=== PATIENT | female | born 1965 | race Caucasian/White ===

== ENCOUNTER → 2019-04-13 18:43 | Outpatient (BNVA) | payer OTHER, SELFPAY | PROVIDERS: Family Provider Family Medicine; PCP Family Medicine; Visit Provider Family Medicine | DX: R05 Cough (principal); J02.9 Acute pharyngitis, unspecified | CPT/HCPCS: 87081; 87804; 87880 ==

== ENCOUNTER 2019-04-17 15:27 | Outpatient (CLI) | payer OTHER, SELFPAY ==
--- NOTE | 2019-04-27 09:30 | CT_ITS ---
WS: [id number] CT PARANASAL SINUSES HISTORY: sinusitis TECHNIQUE: Contiguous 2.5 mm axial images obtained through the sinuses. Images are reconstructed in s agittal and coronal planes. All CT scans at [facility] use at least one of these dose opt imization techniques: automated exposure control; mA and/or kV adjustment per patient size (includes targeted exams where dose is matched to clinical indication); or iterative reconstruction. DLP: 535.03 mGy.cm COMPARISON: None available. Frontal sinuses: No pneumatized frontal sinuses. Sphenoid sinus: Mucoperiosteal thickening bilaterally in the sphenoid sinuses. There is a pneumatized LEFT sphenoid sinus. Mucoperiosteal thickening in the LEFT sphenoid sinus measures up to 5 mm. Ethmoid sinuses: No significant disease. Maxillary sinus: Normal. Ostiomeatal unit: Patent with no obstruction. Very slight deviation of the nasal septum to the LEFT. There is a very tiny spur along the inferior n panchito septum extending to the LEFT by 3 mm. Soft tissues of the orbits and globes are normal.
== END 2019-04-17 15:28 | disposition home or self-care (01) ==
LOC: RADWPI 04-18 09:56
PROVIDERS: Family Provider Family Medicine; PCP Family Medicine; Visit Provider Otolaryngology
DX: J32.9 Chronic sinusitis, unspecified (principal); J34.2 Deviated nasal septum; J34.3 Hypertrophy of nasal turbinates; E89.0 Postprocedural hypothyroidism; R49.0 Dysphonia
CPT/HCPCS: 99203; 99214

== ENCOUNTER 2019-04-27 08:58 | Outpatient (CLI) | payer OTHER, SELFPAY ==
--- NOTE | 2019-04-27 09:23 | CT_ITS ---
WS: [id number] CT NECK WITH CONTRAST HISTORY: HYPOTHYROIDISM TECHNIQUE: Contiguous 5 mm axial images are performed through the neck with intravenous contrast. Sag ittal and coronal reformats are also submitted. All CT scans at [facility] use at least o ne of these dose optimization techniques: automated exposure control; mA and/or kV adjustment per pat ient size (includes targeted exams where dose is matched to clinical indication); or iterative recons truction. CONTRAST: CONTRAST: Omnipaque 300; 95 mL IV. DLP: 545.08 mGy.cm COMPARISON: None available. There is some very mild asymmetry involving either vallecula. The RIGHT vallecula is smaller caliber and slightly deformed with increased soft tissue. Very slight deviation of the glossoepiglottic fold to the LEFT. No discrete mass is identified. Epiglottis remains midline. Otherwise the larynx is nega tive. Torus tubarius and fossa of Rosenmuller and parapharyngeal fat are normal. There are small bilateral cervical chain lymph nodes. The largest lymph nodes at level II on the RIGH T measures 8 mm in diameter. Thyroid gland is absent. By history surgical removal. Parotid glands are fatty replaced. Submandibula r glands are negative. Mild cervical spondylosis. Visualized portions of the skull base demonstrate no abnormalities. Orbits and globes are within norm al limits. No soft tissue masses. Imaging through the upper lung luo demonstrates dependent changes. Pulmonary artery size appears s lightly enlarged as compared to the aorta. CT/CT neck w con* [id number] IMPRESSION: 1. Very mild asymmetry of the RIGHT vallecula as compared to the LEFT. There i s volume loss and partial collapse of the RIGHT vallecula. No discrete mass mckayla ntified. Consider direct visualization. 2. No adenopathy. 3. Prior thyroidectomy.
[2019-04-27] MEDS: iohexol 300 mg/mL 100 mL Btl IV (10:17)
--- NOTE | 2019-04-27 16:35 | CT_ITS ---
WS: [id number] CT PARANASAL SINUSES HISTORY: sinusitis TECHNIQUE: Contiguous 2.5 mm axial images obtained through the sinuses. Images are reconstructed in s agittal and coronal planes. All CT scans at [facility] use at least one of these dose opt imization techniques: automated exposure control; mA and/or kV adjustment per patient size (includes targeted exams where dose is matched to clinical indication); or iterative reconstruction. DLP: 535.03 mGy.cm COMPARISON: None available. Frontal sinuses: No pneumatized frontal sinuses. Sphenoid sinus: Mucoperiosteal thickening bilaterally in the sphenoid sinuses. There is a pneumatized LEFT sphenoid sinus. Mucoperiosteal thickening in the LEFT sphenoid sinus measures up to 5 mm. Ethmoid sinuses: No significant disease. Maxillary sinus: Normal. Ostiomeatal unit: Patent with no obstruction. Very slight deviation of the nasal septum to the LEFT. There is a very tiny spur along the inferior n panchito septum extending to the LEFT by 3 mm. Soft tissues of the orbits and globes are normal. CT/CT sinus wo con* [id number] IMPRESSION: 1. Mild sphenoid sinusitis. 2. Ostiomeatal units are patent. 3. Minimal LEFT deviation of the nasal septum.
== END 2019-04-27 08:59 | disposition home or self-care (01) ==
LOC: RAD 09:15
PROVIDERS: Family Provider Family Medicine; PCP Family Medicine; Visit Provider Otolaryngology
DX: J32.9 Chronic sinusitis, unspecified (principal); E03.9 Hypothyroidism, unspecified
CPT/HCPCS: 70486; 70491

== ENCOUNTER → 2019-05-03 10:31 | Outpatient (BNVA) | payer OTHER, SELFPAY | PROVIDERS: Family Provider Family Medicine; PCP Family Medicine; Visit Provider Otolaryngology | DX: J32.9 Chronic sinusitis, unspecified (principal); J34.2 Deviated nasal septum; J34.3 Hypertrophy of nasal turbinates; E89.0 Postprocedural hypothyroidism; R49.0 Dysphonia | CPT/HCPCS: 96372; 99214; J3301 ==

== ENCOUNTER → 2019-05-12 10:57 | Outpatient (BNVA) | payer OTHER, SELFPAY | PROVIDERS: Family Provider Family Medicine; PCP Family Medicine; Visit Provider Otolaryngology | DX: J34.2 Deviated nasal septum (principal); J34.3 Hypertrophy of nasal turbinates; E89.0 Postprocedural hypothyroidism; R49.0 Dysphonia; R05 Cough | CPT/HCPCS: 31575; 99214 ==

== ENCOUNTER → 2019-11-30 16:46 | Outpatient (BNVA) | payer OTHER, SELFPAY | PROVIDERS: Family Provider Family Medicine; PCP Family Medicine; Visit Provider Internal Medicine Rheumatology | DX: M06.9 Rheumatoid arthritis, unspecified (principal); Z11.59 Encounter for screening for other viral diseases | CPT/HCPCS: 80076; 85025 ==

== ENCOUNTER → 2020-01-16 13:46 | Outpatient (BNVA) | payer OTHER, SELFPAY | PROVIDERS: Family Provider Family Medicine; PCP Family Medicine; Visit Provider Nurse Practitioner Family | DX: Z11.59 Encounter for screening for other viral diseases (principal); J06.9 Acute upper respiratory infection, unspecified | CPT/HCPCS: 87635 ==

== ENCOUNTER → 2020-02-01 17:21 | Outpatient (BNVA) | payer OTHER, SELFPAY | PROVIDERS: Family Provider Family Medicine; PCP Family Medicine; Visit Provider Family Medicine Adult Medicine | DX: M54.9 Dorsalgia, unspecified (principal); M79.10 Myalgia, unspecified site; Z79.899 Other long term (current) drug therapy | CPT/HCPCS: 81000 ==

== ENCOUNTER 2020-03-04 18:12 | Emergency (ER) | payer OTHER, SELFPAY ==
--- NOTE | 2020-03-04 18:23 | XRR_ITS ---
PROCEDURE INFORMATION: Exam: XR Left Wrist Exam date and time: 03/04/2020 6:44 PM Age: 54 years old Clinical indication: Injury or trauma; Fall; Blunt trauma (contusions or hematomas); Injury date: 03/04/2020; Injury details: Attempted cartwheel - heard crack from left wrist; Prior surgery; Surgery type: Two carpals removed; Patient HX: Left wrist injury/pain TECHNIQUE: Imaging protocol: XR Left wrist. Views: 3 or more views. COMPARISON: No relevant prior studies available. FINDINGS: Bones/joints: The carpal bones appear normal. Only 1 row is present. There is narrowing of the radiocarpal space. The capitate and hamate are present. The remainder of the carpal bones are not optimally visualized. These changes likely are chronic Soft tissues: Unremarkable XR/XR wrist LT min 3V* [id number] IMPRESSION: 1. Chronic bone changes in the wrist as described 2. Negative for acute bony abnormality.
--- NOTE | 2020-03-04 18:37 | ED_ITS ---
HPI - Extremity Injury (Upper) General: Chief Complaint: Extremity Injury, Upper Stated Complaint: L WRIST INJURY Time Seen by Provider: 03/04/20 18:37 Source: patient Mode of arrival: ambulatory Limitations: no limitations History of Present Illness: HPI narrative: 54-year-old female patient presents to the emergency department with left wrist injury. She reports attempted a cartwheel - felt a pop in her left wrist. Reports occurred at 5 pm today. Previous injury to the left wrist - reports removal of bones to the left hand. MD complaint: injury to: left and wrist Other Extremity Injury: Left: wrist Other injuries: none Handedness: right Place: other ([facility]) Severity scale (1-10): 4 Relieving factors: none Exacerbating factors: movement of extremity Context: injury Associated symptoms: Reports no associated symptoms; Denies neck pain or weakness in extremities Review of Systems General: Reports: 10 or more systems reviewed and unremarkable except in HPI and below Const: Denies: fever(s), chills or diaphoresis Eyes: Denies: blurry vision or eye redness ENMT: Denies: throat pain, dental pain or disequilibrium Card: Denies: chest pain, palpitations or irregular heart rhythm Resp: Denies: dyspnea, productive cough, non-productive cough or wheezing GI: Denies: abdominal pain, nausea or vomiting : Denies: difficulty voiding or dysuria Musc: Reports: extremity pain (left wrist pain); Denies: neck pain or back pain Skin/Breast: Denies: rash or pruritus Neuro: Denies: headache(s), weakness in extremities or behavioral changes Psych: Denies: anxiety or depression Sarbjit/Lymph: Denies: easy bruising PFSH ED PFSH: Medical History Carcinoma of thyroid gland Chronic cough Chronic low back pain with sciatica Chronic sinusitis Depression Deviated septum Dysphonia Hypothyroidism Iron deficiency anemia Muscle ache Nasal turbinate hypertrophy Rheumatoid arthritis Thyroid cancer, medullary carcinoma Social History Smoking and tobacco status: never smoked Second hand smoke exposure: Yes Alcohol intake: current Alcohol intake frequency: holidays/special occasions only Lives independently: Yes Current occupational status: employed Current occupation: [employer] Teacher Current occupational exposures/hazards: No History of recent travel: No Current gender identity: Female Physical Exam Const: COMMON NORMALS: no acute distress, patient oriented x3, healthy appearing and alert GENERAL APPEARANCE: cooperative, comfortable and well hydrated HENMT: COMMON NORMALS: normocephalic, Normal external nose present and moist oral mucous membranes HEAD & SCALP: normocephalic NOSE: Normal external nose present Eye: COMMON NORMALS: Equal, round and reactive pupils present and EOMs intact bilaterally GENERAL EYE: appearance normal, both eyes and all related structures PUPIL: Yes Equal, round and reactive pupils present Neck/C-Spine: COMMON NORMALS: full ROM and no lymphadenopathy GENERAL: Yes normal visual inspection and Yes trachea midline CERVICAL SPINE: Yes cervical ROM normal Lymph: LYMPHATIC: no lymphadenopathy noted Chest: COMMONS NORMALS: normal inspection of the chest Resp: COMMON NORMALS: normal respiratory effort and clear to auscultation bilaterally AUSCULTATION: clear to auscultation bilaterally Cardio: COMMON NORMALS: regular rhythm, S1 normal heart sound present and S2 normal heart sound present RHYTHM: regular rhythm HEART SOUNDS: S1 normal heart sound present and S2 normal heart sound present GI: COMMON NORMALS: Soft to palpation and non-tender INSPECTION: Yes normal to inspection PALPATION: Yes Soft to palpation : COMMON NORMALS: Yes no CVA tenderness BLADDER/KIDNEY EXAM: Yes no CVA tenderness Back/Pelvis: COMMON NORMALS: no CVA tenderness and thoracic and lumbar spine normal to inspection Extremity: COMMON NORMALS: normal to inspection and capillary refill normal GENERAL: Yes normal exam except as noted LEFT UPPER EXTREMITY: Yes wrist Left wrist: Yes inspection (swelling over distal ulna), Yes palpation (pain over distal ulna), Yes ROM (unable to pronate/supinate) and Yes neurovascular exam (distally intact) Neuro: COMMON NORMALS: patient oriented x3 and no focal motor deficits SENSORIUM/ORIENTATION: Yes alert Psych: COMMON NORMALS: mental status grossly normal, Normal thought process present and cooperative ACTIVITY/MOTOR BEHAVIOR: Yes appropriate eye contact THOUGHT PROCESS: Normal thought process present Skin: COMMON NORMALS: no rashes or lesions noted and turgor normal GENERAL SKIN EXAM: no rashes or lesions noted and turgor normal Course Vital Signs: Vital signs: Vital Signs Temperature 98.0 F 03/04/20 18:50 Pulse Rate 73 03/04/20 18:50 Respiratory Rate 14 03/04/20 18:50 Blood Pressure 122/84 03/04/20 18:50 Pulse Oximetry 97 03/04/20 18:50 MDM - Extremity Injury (Upper) Imaging Data^: Xray Ortho: Radiologist's impression: [address] [place] [address] XRay Report Signed Patient: Alana Powell #: [id number] : 1965Acct#:[id number] Age/Sex: 54 / FADM Date: 03/04/20 Loc: ERRoom/Bed: Attending Dr: Ordering Provider/Ordering MD: Ellen Caceres MD Date of Service: 03/04/20 Procedure(s): XR wrist LT min 3V* [id number] Accession Number(s): [id number] Report Number: [id number] PROCEDURE INFORMATION: Exam: XR Left Wrist Exam date and time: 03/04/2020 6:44 PM Age: 54 years old Clinical indication: Injury or trauma; Fall; Blunt trauma (contusions or hematomas); Injury date: 03/04/2020; Injury details: Attempted cartwheel - heard crack from left wrist; Prior surgery; Surgery type: Two carpals removed; Patient HX: Left wrist injury/pain TECHNIQUE: Imaging protocol: XR Left wrist. Views: 3 or more views. COMPARISON: No relevant prior studies available. FINDINGS: Bones/joints: The carpal bones appear normal. Only 1 row is present. There is narrowing of the radiocarpal space. The capitate and hamate are present. The remainder of the carpal bones are not optimally visualized. These changes likely are chronic Soft tissues: Unremarkable XR/XR wrist LT min 3V* [id number] IMPRESSION: 1. Chronic bone changes in the wrist as described 2. Negative for acute bony abnormality. Dictated By:Yosi Pedersen Signed By:Rajan Pedersen Date/Time:03/04/201918 DD/ 17 Discharge Plan Discharge Patient Disposition: Home Clinical Impression: Muscle strain of left wrist Qualifiers: Encounter type: initial encounter Qualified Code(s): S66.912A - Strain of unspecified muscle, fascia and tendon at wrist and hand level, left hand, initial encounter Condition: Stable Prescriptions: No Action methotrexate sodium 5 mg tablet 5 mg PO DAILY RF: 0 gabapentin 300 mg capsule 300 mg PO .qhs Qty: 90 RF: 3 ferrous sulfate [Iron (ferrous sulfate)] 325 mg (65 mg iron) tablet 325 mg PO TID Qty: 270 RF: 3 sertraline 50 mg tablet 50 mg PO QDAY Qty: 90 RF: 3 omeprazole 20 mg capsule,delayed release(DR/EC) 20 mg PO BID 90 Days Qty: 180 RF: 3 fluticasone propionate [Flonase Allergy Relief] 50 mcg/actuation spray,suspension 1 spray INTRANASAL Q12H 60 Days Qty: 36.4 RF: 2 azelastine 137 mcg (0.1 %) aerosol,spray 2 spray INTRANASAL BID 90 Days Qty: 30 RF: 3 azithromycin 250 mg tablet See Rx Instructions PO .COMPLEX Qty: 6 RF: 0 prednisone 20 mg tablet 20 mg PO DAILY 5 Days Qty: 5 RF: 0 ibuprofen 800 mg tablet 800 mg PO BID Qty: 60 RF: 0 furosemide [Lasix] 20 mg tablet 20 mg PO QDAY PRN (Reason: edema) 30 Days Qty: 30 RF: 1 levothyroxine 137 mcg capsule 137 mcg PO QDAY Qty: 90 RF: 1 Discharge Orders: Discharge ED (Routine); Ordered 03/04/20 Ordered By: iLn Hammer Patient Instructions: Wrist Injury (ED), Splint Care (ED) Activity Restrictions/Additional Instructions: Utilize Velcro wrist splint to help with pain Radiologist did not visualize fracture during your ED stay Follow-up with your primary care physician if pain continues in 5 to 7 days Wear wrist splint at night and during the day with activity to help with pain and swelling Take Tylenol/ibuprofen as needed for pain as directed on bottle Coding Level of Care Code ED Survey Engineer for Chg Fwd Exam Comprehensive
[2020-03-04 18:50] VITALS: BP 122/84; PULSE 73; RESP 14; TEMP 36.7; O2SAT 97; BMI 29.2
== END 2020-03-04 19:57 | disposition home or self-care (01) ==
PROVIDERS: Emergency Provider Nurse Practitioner Family
DX: S66.912A Strain of unspecified muscle, fascia and tendon at wrist and hand level, left hand, initial encounter (principal); Z85.850 Personal history of malignant neoplasm of thyroid; Z77.22 Contact with and (suspected) exposure to environmental tobacco smoke (acute) (chronic); X50.9XXA Other and unspecified overexertion or strenuous movements or postures, initial encounter; Y93.43 Activity, gymnastics
CPT/HCPCS: 12345; 29125; 73110; 99281; 99283

== ENCOUNTER → 2020-03-24 16:50 | Outpatient (BNVA) | payer OTHER, SELFPAY | PROVIDERS: Visit Provider Nurse Practitioner Family | DX: J02.9 Acute pharyngitis, unspecified (principal); J01.40 Acute pansinusitis, unspecified | CPT/HCPCS: 86710; 87071; 87400; 87880 ==

== ENCOUNTER 2020-12-13 07:15 | Outpatient (CLI) | payer OTHER, SELFPAY ==
[2020-12-13 07:25] VITALS: BP 109/75; PULSE 79; RESP 18; TEMP 36.9; O2SAT 96; BMI 25.7
[2020-12-13 07:56] VITALS: BP 118/73; PULSE 63; RESP 16; O2SAT 97
[2020-12-13 09:07] VITALS: BP 108/72; PULSE 72; RESP 17; TEMP 36.6; O2SAT 98
== END 2020-12-13 07:16 | disposition home or self-care (01) ==
LOC: OPS 07:18
PROVIDERS: PCP Family Medicine; Visit Provider Clinical Nurse Specialist Adult Health
DX: U07.1 COVID-19 (principal)
CPT/HCPCS: 96365

== ENCOUNTER → 2021-03-22 12:35 | Outpatient (BNVA) | payer OTHER, SELFPAY | PROVIDERS: PCP Family Medicine; Visit Provider Family Medicine | DX: R05.9 Cough, unspecified (principal) | CPT/HCPCS: 87400; 87880 ==

== ENCOUNTER 2021-12-01 10:04 | Outpatient (CLI) | payer OTHER, SELFPAY ==
--- NOTE | 2021-12-01 10:09 | MM_ITS ---
WS: [id number] BILATERAL SCREENING DIGITAL BREAST MAMMOGRAPHY WITH MAURISIO DISPLACEMENT VIEWS. CAD PERFORMED. HISTORY: SCREENING COMPARISON: 02/06/2019 Bilateral craniocaudal and mediolateral oblique views are performed with tomosynthesis and SM. Maurisio displacement views in CC and MLO projection also performed. Breasts composition: The breasts are heterogeneously dense, which may obscure small masses. Implants are intact. No extravasation or collapse of the implant. No suspicious mass or calcification . Asymmetry in the RIGHT breast is stable. MM/[place] [id number] IMPRESSION: BI-RADS: 2-Benign FOLLOW-UP: 1 Year Follow-up
== END 2021-12-01 10:05 | disposition home or self-care (01) ==
LOC: RAD 10:07
PROVIDERS: PCP Family Medicine; Visit Provider Family Medicine
DX: Z12.31 Encounter for screening mammogram for malignant neoplasm of breast (principal)
CPT/HCPCS: 77063; 77067

== ENCOUNTER → 2022-07-03 13:18 | Outpatient (BNVA) | payer OTHER, SELFPAY | PROVIDERS: PCP Family Medicine; Visit Provider Family Medicine | DX: Z79.899 Other long term (current) drug therapy (principal) | CPT/HCPCS: 80053; 80076; 83036; 84439; 84443; 85025 ==

== ENCOUNTER 2022-07-19 19:07 | Emergency (ER) | payer OTHER, SELFPAY ==
[2022-07-19 19:12] VITALS: BP 131/88; PULSE 105; RESP 18; TEMP 36.3; O2SAT 96; BMI 29.8
--- NOTE | 2022-07-19 19:34 | XRR_ITS ---
PROCEDURE INFORMATION: Exam: XR Left Knee Exam date and time: 07/19/2022 7:43 PM Age: 56 years old Clinical indication: Injury or trauma; Blunt trauma; Patient HX: Fall this evening. C/O left knee pain. ; Additional info: Pain, lateral TECHNIQUE: Imaging protocol: Radiologic exam of the left knee. Views: 3 views. COMPARISON: No relevant prior studies available. FINDINGS: Bones/joints: Trace knee joint effusion. No joint space narrowing. No acute osseous injury. Anatomic alignment. Soft tissues: Normal. XR/XR knee LT 3V* [id number] IMPRESSION: Trace knee joint effusion. No acute osseous injury.
--- NOTE | 2022-07-19 19:40 | W.ED.EXTPRO ---
HPI - Extremity Problem General: Chief complaint: Extremity Problem,Nontraumatic Stated complaint: Left ankle injury Time Seen by Provider: 07/19/22 19:17 Source: patient Mode of arrival: wheelchair Limitations: no limitations History of Present Illness: Patient presents emergency department today for evaluation treatment of acute left lateral knee pain. Patient states that she had been seated with her knees crossed putting together a trampoline. When she attempted to get up she felt a sudden pain and pop on the left side of her knee causing radiating pain down to the lateral mid calf and, now having radiating pain up the lateral thigh. Patient is nonweightbearing due to her pain at this time. She does have a history of RA and currently takes methotrexate. Review of Systems General: Reports: 10 or more systems reviewed and unremarkable except in HPI and below PFSH ED PFSH: Medical History Carcinoma of thyroid gland Chronic cough Chronic low back pain with sciatica Chronic sinusitis Depression Deviated septum Dysphonia Hypothyroidism Iron deficiency anemia Muscle ache Nasal turbinate hypertrophy Rheumatoid arthritis Thyroid cancer, medullary carcinoma Social History Smoking and tobacco status: never smoked Second hand smoke exposure: Yes Alcohol intake: current Alcohol intake frequency: holidays/special occasions only Substance/Drug Use: never Lives independently: Yes Current occupational status: employed Current occupation: [employer] Current occupational exposures/hazards: No Do you think of yourself as: Straight/Heterosexual Current gender identity: Female Physical Exam Const: COMMON NORMALS: no acute distress, patient oriented x3 and alert HENMT: COMMON NORMALS: normocephalic, atraumatic and hearing grossly normal bilaterally HEAD & SCALP: normocephalic and atraumatic Eye: COMMON NORMALS: Equal, round and reactive pupils present, EOMs intact bilaterally and conjunctivae normal CONJUNCTIVA: Yes conjunctivae normal PUPIL: Yes Equal, round and reactive pupils present Neck/C-Spine: COMMON NORMALS: full ROM and no JVD Lymph: LYMPHATIC: no lymphadenopathy noted Resp: COMMON NORMALS: normal respiratory effort, No retractions and No use of accessory muscles Cardio: COMMON NORMALS: no JVD and regular rate RATE: regular rate Neuro: COMMON NORMALS: patient oriented x3 SENSORIUM/ORIENTATION: Yes alert Psych: COMMON NORMALS: mental status grossly normal, Normal thought process present, cooperative and normal affect THOUGHT PROCESS: Normal thought process present Skin: COMMON NORMALS: no rashes or lesions noted and turgor normal GENERAL SKIN EXAM: no rashes or lesions noted and turgor normal Course Vital Signs: Vital signs: Vital Signs Temperature 97.4 F L 07/19/22 19:12 Pulse Rate 105 H 07/19/22 19:12 Respiratory Rate 18 07/19/22 19:12 Blood Pressure 131/88 07/19/22 19:12 Pulse Oximetry 96 07/19/22 19:12 Oxygen Delivery Me thod Room Air 07/19/22 19:12 MDM - Extremity (Nontraumatic) Medical Decision Making Patient presented to the emergency department today for evaluation and treatment of acute left lateral knee pain. X-rays today were negative though there was signs of a small effusion. Explained to the patient that while there is not a bony abnormality, the effusion can indicate overstretching or injury of the connective tissues. Given her chronic joint issues we did place her in an immobilizer and provided crutches. She was also given some medication to help with pain. I went ahead and initiated a referral for follow-up through orthopedics should she continue to have issues with knee pain or worsening effusion symptoms. Patient verbalized understanding and agreement to treatment plan. Differential Diagnosis Likely lower extremity edema (Knee sprain, knee strain, patellar dislocation, avulsion fracture, muscle strain) Lab Data Radiology Impressions Knee X-Ray 07/19/22 19:34 IMPRESSION: Trace knee joint effusion. No acute osseous injury. Discharge Plan Discharge Patient Disposition: Home Clinical Impression: Sprain of left knee/leg, Rheumatoid arthritis Condition: Stable Prescriptions: No Action methotrexate sodium 5 mg tablet 5 mg PO DAILY ferrous sulfate [Iron (ferrous sulfate)] 325 mg (65 mg iron) tablet 325 mg PO TID Qty: 270 3RF Rx Instructions: take with fruit or vegetables omeprazole 20 mg capsule,delayed release(DR/EC) 20 mg PO BID 90 Days Qty: 180 3RF fluticasone propionate [Flonase Allergy Relief] 50 mcg/actuation spray,suspension 1 spray INTRANASAL Q12H 60 Days Qty: 36.4 2RF Rx Instructions: administer into each nostril azelastine 137 mcg (0.1 %) aerosol,spray 2 spray INTRANASAL BID 90 Days Qty: 30 3RF Rx Instructions: administer into each nostril prednisone 20 mg tablet 20 mg PO DAILY 5 Days Qty: 5 0RF fluticasone propionate [Flonase Allergy Relief] 50 mcg/actuation spray,suspension 1 spray intranasal DAILY PRN (Reason: allergy symptoms) Qty: 16 0RF Rx Instructions: administer into each nostril folic acid 1 mg tablet 1 mg PO DAILY xalganz PO sertraline 25 mg tablet 25 mg PO DAILY Qty: 30 6RF azithromycin 250 mg tablet See Rx Instructions PO .COMPLEX Qty: 6 0RF Rx Instructions: take 500 mg today (day 1), then 250 mg for 4 days (days 2-5) PO levothyroxine 112 mcg tablet 112 mcg PO DAILY Qty: 90 3RF Discharge Orders: Discharge ED (Routine); Ordered 07/19/22 Ordered By: Sabra Gray Referrals: Arnold Escalante MD [Primary Care Provider] - Discharge Diet: Usual diet Discharge Activity: Limit activity as instructed Patient Instructions: Knee Sprain (ED), Opioid Safety Activity Restrictions/Additional Instructions: X-ray shows no signs of any bony injury but, that still indicates the possibility of soft tissue injury. There is a small effusion noted on your x-ray which often points toward soft tissue injury. We will put you in a knee brace and request you remain nonweightbearing-use your crutches, until you are able to be seen by orthopedics. We have requested a follow-up on your behalf to have a recheck of your injury through orthopedics should you require further intervention or different imaging to further evaluate your injury. Coding Level of Care Code ED Manager Of Regulatory Affairs for Zeinab Buckley
[2022-07-19] MEDS: ketorolac 60 mg/2 mL INJ IM (20:07)
--- NOTE | 2022-07-20 02:30 | ED_ITS ---
HPI - Extremity Problem General: Chief complaint: Extremity Problem,Nontraumatic Stated complaint: Left ankle injury Time Seen by Provider: 07/19/22 19:17 Source: patient Mode of arrival: wheelchair Limitations: no limitations PFSH ED PFSH: Medical History Carcinoma of thyroid gland Chronic cough Chronic low back pain with sciatica Chronic sinusitis Depression Deviated septum Dysphonia Hypothyroidism Iron deficiency anemia Muscle ache Nasal turbinate hypertrophy Rheumatoid arthritis Thyroid cancer, medullary carcinoma Social History Smoking and tobacco status: never smoked Second hand smoke exposure: Yes Alcohol intake: current Alcohol intake frequency: holidays/special occasions only Substance/Drug Use: never Lives independently: Yes Current occupational status: employed Current occupation: [employer] Teacher Current occupational exposures/hazards: No Do you think of yourself as: Straight/Heterosexual Current gender identity: Female Course Vital Signs: Vital signs: Vital Signs Temperature 97.4 F L 07/19/22 19:12 Pulse Rate 105 H 07/19/22 19:12 Respiratory Rate 18 07/19/22 19:12 Blood Pressure 131/88 07/19/22 19:12 Pulse Oximetry 96 07/19/22 19:12 Oxygen Delivery Me thod Room Air 07/19/22 19:12 MDM - Extremity (Nontraumatic) Lab Data Radiology Impressions Knee X-Ray 07/19/22 19:34 IMPRESSION: Trace knee joint effusion. No acute osseous injury. Discharge Plan Discharge Patient Disposition: Home Clinical Impression: Sprain of left knee/leg, Rheumatoid arthritis Condition: Stable Prescriptions: No Action methotrexate sodium 5 mg tablet 5 mg PO DAILY ferrous sulfate [Iron (ferrous sulfate)] 325 mg (65 mg iron) tablet 325 mg PO TID Qty: 270 3RF Rx Instructions: take with fruit or vegetables omeprazole 20 mg capsule,delayed release(DR/EC) 20 mg PO BID 90 Days Qty: 180 3RF fluticasone propionate [Flonase Allergy Relief] 50 mcg/actuation spray,suspension 1 spray INTRANASAL Q12H 60 Days Qty: 36.4 2RF Rx Instructions: administer into each nostril azelastine 137 mcg (0.1 %) aerosol,spray 2 spray INTRANASAL BID 90 Days Qty: 30 3RF Rx Instructions: administer into each nostril prednisone 20 mg tablet 20 mg PO DAILY 5 Days Qty: 5 0RF fluticasone propionate [Flonase Allergy Relief] 50 mcg/actuation spray,suspension 1 spray intranasal DAILY PRN (Reason: allergy symptoms) Qty: 16 0RF Rx Instructions: administer into each nostril folic acid 1 mg tablet 1 mg PO DAILY xalganz PO sertraline 25 mg tablet 25 mg PO DAILY Qty: 30 6RF azithromycin 250 mg tablet See Rx Instructions PO .COMPLEX Qty: 6 0RF Rx Instructions: take 500 mg today (day 1), then 250 mg for 4 days (days 2-5) PO levothyroxine 112 mcg tablet 112 mcg PO DAILY Qty: 90 3RF Discharge Orders: Discharge ED (Routine); Ordered 07/19/22 Ordered By: Sabra Gray Referrals: Arnold Escalante MD [Primary Care Provider] - Discharge Diet: Usual diet Discharge Activity: Limit activity as instructed Patient Instructions: Knee Sprain (ED), Opioid Safety Activity Restrictions/Additional Instructions: X-ray shows no signs of any bony injury but, that still indicates the possibility of soft tissue injury. There is a small effusion noted on your x- ray which often points toward soft tissue injury. We will put you in a knee brace and request you remain nonweightbearing-use your crutches, until you are able to be seen by orthopedics. We have requested a follow-up on your behalf to have a recheck of your injury through orthopedics should you require further intervention or different imaging to further evaluate your injury. Coding Level of Care Code ED Automatic Print Developer for Zeinab Buckley
--- NOTE | 2022-07-20 08:22 | DCPLANNER ---
Addendum entered by Rhiannon Garza 07/30/22 09:57: Patient had a follow up appointment scheduled with ortho - patient did attend appointment. Addendum entered by Rhiannon aGrza 07/21/22 11:16: Patient has a follow up appointment scheduled for Wednesday, July 29, [address]22 at 3:[address] Coyne at ortho. Original Note: manager diesel had message to schedule a follow up appointment for patient with ortho. manager diesel sent patients information to the front office staff at ortho. Patients information will be printed and reviewed. Clinic will call patient with appointment information.
== END 2022-07-19 21:18 | disposition home or self-care (01) ==
PROVIDERS: Emergency Provider Physician Assistant; PCP Family Medicine
DX: S83.92XA Sprain of unspecified site of left knee, initial encounter (principal); M06.9 Rheumatoid arthritis, unspecified; Z77.22 Contact with and (suspected) exposure to environmental tobacco smoke (acute) (chronic); Z85.850 Personal history of malignant neoplasm of thyroid; X50.9XXA Other and unspecified overexertion or strenuous movements or postures, initial encounter
CPT/HCPCS: 73562; 96372; 99284; E0114; J1885

== ENCOUNTER 2022-08-20 09:21 | Outpatient (CLI) | payer OTHER, SELFPAY ==
--- NOTE | 2022-08-20 09:30 | MR_ITS ---
WS: [id number] MRI LEFT KNEE HISTORY: pain COMPARISON: LEFT knee radiograph 07/19/2022 Anterior cruciate ligament: Increased signal throughout the ACL but the fibers are intact. Probably d ue to intrasubstance degeneration. Posterior cruciate ligament: Intact. Medial collateral ligament: Intact. Posterior lateral corner structures: Intact. Medial menisci: Intact. Normal signal, size and shape. Lateral meniscus: Complex tear in the posterior horn. Signal extends in a vertical and horizontal man ner. There is contact on both the inferior and superior articular surfaces. Extensor mechanism: Distal quadriceps tendon and patellar tendons are intact. Fluid and soft tissue: Small suprapatellar joint effusion. Small Boyle's cyst. Osseous and articular structures: Patellofemoral compartment: Normal. Medial compartment: Lateral compartment: Mild thinning and fissuring of the cartilage. No full thickness cartilage defect s. MR/MR knee LT wo con* [id number] IMPRESSION: 1. Complex tear posterior horn lateral meniscus. Tear extends to the superior and inferior articular surfaces. 2. Small suprapatellar joint effusion and small Boyle's cyst. 3. No marrow edema.
== END 2022-08-20 09:22 | disposition home or self-care (01) ==
PROVIDERS: PCP Family Medicine; Visit Provider Orthopaedic Surgery
DX: S86.912A Strain of unspecified muscle(s) and tendon(s) at lower leg level, left leg, initial encounter (principal); X58.XXXA Exposure to other specified factors, initial encounter; S83.282A Other tear of lateral meniscus, current injury, left knee, initial encounter
CPT/HCPCS: 73721